=== PATIENT | male | born 1990 | race Caucasian/White ===

== ENCOUNTER 2023-03-31 13:56 | Observation (INO) | payer OTHER ==
--- OUTSIDE RECORDS SUMMARY | 2023-03-31 14:11 | XMS REPORT | Continuity of Care Document ---
:1990 Author Organization [facility] t Address [address] [place] [address] Care Team Providers Name Role Phone PCP, PATIENT DOES NOT HAVE A Primary Care Physician Unavaila Edd Bloom Attending Clinician Unavailable RADIOLOGY Attending Clinician Unavailable CORDELL PELAEZ Attending Clinician Unavailable 2, [facility] Attending Clinician Unavailable Cordell Pelaez MD Attending Clinician Apolinar Attending Clinician Unavailable Gualberto Mendoza Attending Clinician Unavailable Apolinar Admitting Clinician Unavailable Brodie Mendoza Admitting Clinician Unavailable Payers Payer Name Policy Type Policy Effective Date Expiration Date Sour ce Number [employer]CIAL [id number] 2022 OUT OF NETWORK 00:00:00 AETNA 53 [id number] 2022 [facility] 00:00:00 [facility] AETNA - CHOICE [id number] 2022 (POS II) 00:00:00 Problems Condition Condition Condition Status Onset Resolution Last Treating Co mments Source Name Details Category Date Date Treatment Clinician Date Lumbar Lumbar Problem Active 2021-09 Michelle radiculopa Radiculopa -08 Or thope thy thy 00:00: dic 00 Sports Medicin e [id number] Erectile Problem Comm on dysfunctio [facility], - [facility] [id number] Hyperlipid Problem Com mon emia, [facility] unspecifie [facility] d [facility] hyperlipid [facility] [id number] Facet Problem Common arthritis, [facility] degenerati - [facility] ve, L5-S1 St level, [facility] Allergies, Adverse Reactions, Alerts Allergy Allergy Status Severity Reaction(s) Onset Inactive Treating Comm ents Source Name Type Date Date Clinician NO KNOWN Drug Active Univers ALLERGIE Class [facility] Social History Social Habit Start Date Stop Date Quantity Comments Source History of Tobacco [facility] Use [facility] Gender identity [facility] Sexual orientation [facility] Sex Assigned At [birth year] Uni [facility] 00:00:00 00:00:00 [facility] Smoking Status Start Date Stop Date Source Tobacco smoking consumption [facility] Never Smoker [facility] Medications Ordered Filled Start Stop Current Ordering Indication Dosage Frequency Signature Comments Components Source Medication Medication Date Date Medication? Clinician (SIG) Name Name Toradol Toradol No 60mg Common (Ketorolac) (Ketorolac) 7-15 S pirit 00:00: - [facility] Camila Jensen No 40mg Common (Triamcinol (Triamcinol 7-15 S pirit one) one) 00:00: - [facility] Toradol Toradol No 60mg Common (Ketorolac) (Ketorolac) 7-15 S pirit 00:00: - [facility] Camila Jensen No 40mg Common (Triamcinol (Triamcinol 7-15 S pirit one) one) 00:00: - [facility] Toradol Toradol 2022-0 No 60mg Common (Ketorolac) (Ketorolac) 7-15 S pirit 00:00: - [facility] 00 [facility] Kenalog Kenalog 2021-0 No 40mg Common (Triamcinol (Triamcinol 7-15 S pirit one) one) 00:00: - [facility] 00 [facility] Toradol Toradol 2021-0 No 60mg Common (Ketorolac) (Ketorolac) 7-15 S pirit 00:00: - [facility] 00 [facility] Kenalog Kenalog 2021-0 No 40mg Common (Triamcinol (Triamcinol 7-15 S pirit one) one) 00:00: - [facility] 00 [facility] Toradol Toradol 2021-0 No 60mg Common (Ketorolac) (Ketorolac) 7-15 S pirit 00:00: - [facility] 00 [facility] Kenbrent Kenalog 2021-0 No 40mg Common (Triamcinol (Triamcinol 7-15 S pirit one) one) 00:00: - [facility] 00 [facility] Toradol Toradol 2021-0 No 60mg Common (Ketorolac) (Ketorolac) 7-15 S pirit 00:00: - [facility] 00 [facility] Kenbrent Kenalog 2021-0 No 40mg Common (Triamcinol (Triamcinol 7-15 S pirit one) one) 00:00: - [facility] 00 [facility] Toradol Toradol 2021-0 No 60mg Common (Ketorolac) (Ketorolac) 7-15 S pirit 00:00: - [facility]I 00 [facility] Kenalog Kenalog 2021-0 No 40mg Common (Triamcinol (Triamcinol 7-15 S pirit one) one) 00:00: - [facility]I 00 [facility] Toradol Toradol 2021-0 No 60mg Common (Ketorolac) (Ketorolac) 7-15 S pirit 00:00: - [facility]I 00 [facility] Kenalog Kenalog 2021-0 No 40mg Common (Triamcinol (Triamcinol 7-15 S pirit one) one) 00:00: - [facility] 00 [facility] Toradol Toradol 0 No 60mg Common (Ketorolac) (Ketorolac) 7-15 S pirit 00:00: - [facility]I 00 [facility] Kenalog Kenalog 0 No 40mg Common (Triamcinol (Triamcinol 7-15 S pirit one) one) 00:00: - [facility]I 00 [facility] Toradol Toradol 0 No 60mg Common (Ketorolac) (Ketorolac) 7-15 S pirit 00:00: - [facility]I 00 [facility] Kenalog Kenalog 0 No 40mg Common (Triamcinol (Triamcinol 7-15 S pirit one) one) 00:00: - [facility]I 00 [facility] Kenalog Kenalog 2019- No 40mg Common (Triamcinol (Triamcinol 1-05 S pirit one) one) 00:00: - [facility]I 00 [facility] Kenalog Kenalog 2019- No 40mg Common (Triamcinol (Triamcinol 1-05 S pirit one) one) 00:00: - [facility]I 00 [facility] Kenalog Kenalog 2019- No 40mg Common (Triamcinol (Triamcinol 1-05 S pirit one) one) 00:00: - [facility]I 00 [facility] Kenalog Kenalog 2019- No 40mg Common (Triamcinol (Triamcinol 1-05 S pirit one) one) 00:00: - CHI 00 [facility] Kenalog Kenalog 2019- No 40mg Common (Triamcinol (Triamcinol 1-05 S pirit one) one) 00:00: - CHI 00 [facility] Kenalog Kenalog 2019- No 40mg Common (Triamcinol (Triamcinol 1-05 S pirit one) one) 00:00: - CHI 00 [facility] Kenalog Kenalog 2020- No 40mg Common (Triamcinol (Triamcinol 1-05 S pirit one) one) 00:00: - CHI 00 [facility] Kenalog Kenalog 2020- No 40mg Common (Triamcinol (Triamcinol 1-05 S pirit one) one) 00:00: - [facility]I 00 [facility] Camila Jensen 2019-09 No 40mg Common (Triamcinol (Triamcinol 1-05 S pirit one) one) 00:00: - [facility] 00 [facility] Camila Jensen 2019-09 No 40mg Common (Triamcinol (Triamcinol 1-05 S pirit one) one) 00:00: - [facility] 00 [facility] Etodolac Etodolac No BID Etodolac 500 MG 500 MG 500 MG Etodolac Etodolac No BID Etodolac 500 MG 500 MG 500 MG Etodolac Etodolac No 1{table BID Etodolac 500 MG 500 MG t_with_ 500 MG food} Etodolac Etodolac No 1{table BID Etodolac 500 MG 500 MG t_with_ 500 MG food} Etodolac Etodolac No 1{table BID Etodolac 500 MG 500 MG t_with_ 500 MG food} Etodolac Etodolac No 1{table BID Etodolac 500 MG 500 MG t_with_ 500 MG food} Etodolac Etodolac No 1{table BID Etodolac 500 MG 500 MG t_with_ 500 MG food} Etodolac Etodolac No 1{table BID Etodolac 500 MG 500 MG t_with_ 500 MG food} Etodolac Etodolac No BID Etodolac 500 MG 500 MG 500 MG Etodolac Etodolac No BID Etodolac 500 MG 500 MG 500 MG Medrol Medrol No 1dose Medrol Michelle (Ronald) 4 mg (Ronald) 4 mg pk(s) (Ronald) 4 mg Orthope tablets in tablets in tablets in dic a dose pack a dose pack a dose Sports Take 1 dose Take 1 dose pack Take Medicin pk by oral pk by oral 1 dose pk e route. route. by oral route. Immunizations Ordered Filled Immunization Date Status Comments Sourc e Immunization Name Name Boostrix (Tdap) Boostrix (Tdap) 2022-08-12 Completed Comm on 36:00 [facility] Boostrix (Tdap) Boostrix (Tdap) 2022-08-12 Completed Comm on Spirit - 15:36:00 [facility] SARS-COV-2 COVID-19 2021-01-23 Completed Unive rsity of PFIZER VACCINE 00:00:00 [facility] SARS-COV-2 COVID-19 2021-01-03 Completed Unive rsity of PFIZER VACCINE 00:00:00 [facility] Vital Signs Vital Name Observation Time Observation Value Comments Source height 2022-08-21 15:10:00 74 [in_i] [facility] weight 2022-08-21 15:10:00 165 [lb_av] [facility] bmi 2022-08-21 15:10:00 21.18 kg/m2 [facility] height 2022-08-12 15:30:00 74 [in_i] [facility] weight 2022-08-12 15:30:00 166.4 [lb_av] [facility] temperature 2022-08-12 15:30:00 97.9 [degF] [facility] bmi 2022-08-12 15:30:00 21.36 kg/m2 [facility] oximetry 2022-08-12 15:30:00 98 % [facility] respiratory rate 2022-08-12 15:30:00 18 /min Comm on [facility] blood pressure 2022-08-12 15:30:00 118 mm[Hg] [facility] systolic [facility] blood pressure 2022-08-12 15:30:00 63 mm[Hg] [facility] diastolic [facility] Height 2022-07-15 00:00:00 74 [in_i] [facility] BMI (Body Mass 2022-07-15 00:00:00 20.5 kg/m2 [facility] Orthopedic Index) Sports Medicine Body Weight 2022-07-15 00:00:00 160 [lb_av] [facility] height 2022-03-21 16:20:00 74 [in_i] [facility] weight 2022-03-21 16:20:00 156.4 [lb_av] [facility] temperature 2022-03-21 16:20:00 98.9 [degF] [facility] bmi 2022-03-21 16:20:00 20.08 kg/m2 [facility] oximetry 2022-03-21 16:20:00 97 % [facility] respiratory rate 2022-03-21 16:20:00 17 /min Comm on [facility] blood pressure 2022-03-21 16:20:00 119 mm[Hg] [facility] systolic [facility] blood pressure 2022-03-21 16:20:00 72 mm[Hg] [facility] diastolic [facility] Procedures This patient has no known procedures. Plan of Care Planned Activity Planned Date Details Comments Source Instructions [facility]oped [facility] Sports Medicine Encounters Start End Encounter Admission Attending Care Care Encounter Source Date/Time Date/Time Type Type Clinicians Facility Department ID 2023-03-31 Outpatient Mendoza, STLMLC STLMLC [id number] Common 08:56:00 [facility] [address] [facility] 2023-02-23 Outpatient Mendoza, STLMLC STLMLC [id number] Common 13:09:[address] [facility] [address] [facility] 2022-08-19 Outpatient Mendoza, STLMLC STLMLC [id number] Common 15:14:[address] [facility] 2022-07-03 Outpatient Mendoza, STLMLC STLMLC [id number] Common 09:59:[address] [facility] 2022-04-17 Outpatient Mendoza, STLMLC STLMLC [id number] Common 15:01:[address] [facility] 2022-03-25 Outpatient Mendoza, STLMLC STLMLC [id number] Common 13:41:[address] [facility] 2022-03-21 Outpatient Mendoza, STLMLC STLMLC [id number] Common 16:16:[address] [facility] 2022-03-18 Outpatient Mendoza, STLMLC STLMLC [id number] Common 14:11:[address] [facility] 2021-10-04 Outpatient Mendoza, STLMLC STLMLC [id number] Common 10:51:[address] [facility] 2021-10-02 Outpatient Mendoza, STLMLC STLMLC [id number] Common 14:15:[address] [facility] 2021-10-02 Outpatient Mendoza, STLMLC STLMLC [id number] Common 14:14:[address] [facility] 2021-10-02 Outpatient Mendoza, STLMLC STLMLC [id number] Common 14:00:[address] [facility] 2021-10-02 Outpatient Mendoza, STLMLC STLMLC [id number] Common 11:54:[address] [facility] 2023-03-31 2023-03-31 Outpatient R BENIGNO [facility] [id number] Univers 10:00:00 10:26:48 CORDELL drummond [facility] 2023-03-31 2023-03-31 Stencil Sprayer 2, Adc Lab [facility] [id number] [facility] 10:00:00 10:15:00 Visit Cordell Pelaez [id number] bhanu [facility] [id number] Loki CARRANZA [id number] Mt dical [address] 2022-08-21 2022-08-21 OFFICE STLMLC STLC [id number] Co mmon 00:00:00 00:00:00 VISIT EST Spir it PT LEVEL 3 - [facility] 2022-08-12 2022-08-12 PREV VISIT STLMLC STLMLC [id number] Common 00:00:00 00:00:00 EST AGE [facility] 18-39 - [facility] 2022-08-10 2022-08-10 Outpatient FOG_Wimberl AOSM AOSM [id number] Michelle 00:00:00 00:00:00 Anusha [id number] Ortho pe dic Sports Medic[facility] e 2022-07-18 2022-07-18 Outpatient FOG_Wimberl AOSM AOSM [id number] Michelle 00:00:00 00:00:00 Anusha [id number] Ortho pe dic Sports Medicin e 2022-07-15 2022-07-15 Outpatient FOG_Wimberl AOSM AOSM [id number] Michelle 00:00:00 00:00:00 Anusha [id number] Ortho pe dic Sports Medicin e 2022-07-15 2022-07-15 Colten Bernard AOSM [place] - Ortho [id number] Michelle 00:00:00 00:00:00 Mona Coyne MD: 74[address] FOG_Ofc dic [facility], [place] [id number] , Ph. [phone] 2022-06-04 2022-06-04 Outpatient FOG_Wimberl AOSM AOSM [id number] Michelle 00:00:00 00:00:00 Anusha [id number] Ortho pe dic Sports Medicin e 2022-06-02 2022-06-02 (TEL) STLC STLC [id number] Co mmon 00:00:00 00:00:00 [facility] 2022-04-16 2022-04-16 (TEL) STLC STLC [id number] Co mmon 00:00:00 00:00:00 [facility] 2022-04-14 2022-04-14 (TEL) STLC STLMLC [id number] Co mmon 00:00:00 00:00:00 [facility] 2022-04-07 2022-04-07 Outpatient BLANCA MendozaXENIAPM RADI [id number] [facility] 08:43:00 08:43:[address] 2022-03-28 2022-03-28 (TEL) STLC STLC [id number] Co mmon 00:00:00 00:00:00 [facility] 2022-03-24 2022-03-24 (TEL) STLMLC STLMLC [id number] Co mmon 00:00:00 00:00:00 [facility] 2022-03-24 2022-03-24 (TEL) STLMLC STLMLC [id number] Co mmon 00:00:00 00:00:00 [facility] 2022-03-21 2022-03-21 [facility] [id number] Co mmon 00:00:00 00:00:00 VISIT EST Spir it PT LEVEL 3 - [facility] Results Test Description Test Time Test Comments Results Result [facility] e Comments - MRI L-SPINE W/O 2022-04-07 [facility] 1990 Sex: M FAX: Edd Lambert [phone] Camps: PM St: REG Name: LM COTA [facility] : 1990 Age/S: 31/M [address] Unit #: [id number] Loc: [place] [address] Phys: Edd Mendoza DO Acct: [id number] Dis Date: Status: REG CLI PHONE #: [phone] Exam Date: 04/07/2022 09 FAX #: Reason: DORSALGIA, UNSPECIFIED EXAMS: CPT: [id number] MRI L-SPINE W/O CONT [id number] EXAM: - MRI L-SPINE W/O CONT INDICATION: DORSALGIA, UNSPECIFIED Location: T 18. TECHNIQUE: Multiplanar multisequence MR images of the lumbar spine were obtained without intravenous contrast. COMPARISON: None FINDINGS: For purposes of this dictation, it is assumed that there are 5 nonrib-bearing lumbar type vertebrae, and the most caudal fully segmented lumbar vertebra is labeled L5. Alignment: Appears normal. Vertebral body heights: Appear to be maintained. Bone marrow:No diffuse marrow signal abnormality seen. No acute or destructive process seen. Visualized conus: The conus terminates at the level of L1, and appears unremarkable. Cauda equina: Appears unremarkable. Included paraspinal soft tissues and retroperitoneal structures : Appear grossly unremarkable. Evaluation of the individual levels: Moderate disc degenerative changes seen at L5-S1. Mild facet arthropathy also seen at L4-L5 and L5-S1. T12-L1: No spinal canal narrowing or neural foraminal narrowing seen. L1-2: No spinal canal narrowing or neural foraminal narrowing seen. L2-3: No spinal canal narrowing or neural foraminal narrowing seen. L3-4: No spinal canal narrowing or neural foraminal narrowing seen. L4-5: No spinal canal narrowing or neural foraminal narrowing seen. PAGE 1 Signed Report (CONTINUED) FAX: Edd Lambert DO [phone] Camps: PM St: REG Name: LM COTA : 1990 Age/S: 31/M [address] Unit #: [id number] Loc: [place] [address] Phys: Edd Mendoza DO Acct: [id number] Dis Date: Status: REG CLI PHONE #: [phone] Exam Date: 04/07/2022 09 FAX #: Reason: DORSALGIA, UNSPECIFIED EXAMS: CPT: [id number] MRI L-SPINE W/O CONT [id number] (Continued) L5-S1: There is a left lateral protrusion identified with underlying annular tear with slight displacement of the traversing left nerve root. No spinal canal narrowing seen. Mild left neural foraminal narrowing. No right neural foraminal narrowing seen. IMPRESSION: At L5-S1, moderate disc degenerative changes and mild facet arthropathy seen. There is a left lateral protrusion seen with underlying annular tear, and slight distention of the traversing left nerve root. Mild left neural foraminal narrowing. No spinal canal narrowing or right neural foraminal narrowing seen. Please refer to the findings section for additional details. at 0949 Reported and signed by: Manuelito Majano M.D. CC: Edd Mendoza DO Technologist: Shagufta Ly RT(R) Transcribed Date/Time/By: 04/07/2022 (0949) :[email or web address] Orig Print D/T: S: 04/07/2022 (4752) PAGE 2 Signed Report Notes Date/Time Note Provider Source 2023-03-31 10:00:00-00:00 Formatting of this note is d ifferent from the original. [facility] Images from the original note were not included. Venipuncture collection perf ormed by clean technique on the left anticubitus. Total of 2 attempts were made. Slight pressure and a bandage/dressing were applied to the site(s). The patient experienced n o complications. The followi ng specimens were processed according to instructions and sent to [facility] laboratories per lab order on 03/31/2023: LT BLUE SST 2 RED LAV 1 PPT DK GREEN (LiHep) DK GREEN (SodH) CHANDRA DK BLUE (K2) DK BLUE (S) ACD Blood Culture NIPT/NTD Electronically signed by Ela Spann MA a t 03/31/2023 10:26 AM CDT
[2023-03-31 14:41] VITALS: BMI 19.9
[2023-03-31] MEDS ORDERED: BUPIVACAINE 0.5% PF 10 ML VIAL ONE (15:25)
[2023-03-31] MEDS ORDERED: Ringers Lactate 1,000 ML IV ONE (15:41)
[2023-03-31] MEDS ORDERED: propofoL 200 MG/20 ML VIAL IV ONE (15:46)
[2023-03-31] MEDS ORDERED: FENTANYL CITR 100 MCG/2 ML ONE (15:46)
[2023-03-31] MEDS ORDERED: GLYCOPYRROLATE 0.2 MG/ML SYR ONE (15:47)
[2023-03-31] MEDS ORDERED: ONDANSETRON 4 MG/2 ML VIAL ONE (15:47)
[2023-03-31] MEDS ORDERED: MIDAZOLAM HCL 2 MG/2 ML INJ ONE (15:47)
[2023-03-31] MEDS ORDERED: NEOSTIGMINE 1 MG/ML -10 ML VIAL ONE (15:47)
[2023-03-31] MEDS ORDERED: ROCURONIUM 50 MG/5 ML VIAL IV ONE (15:48)
[2023-03-31] MEDS ORDERED: KETOROLAC 30 MG/ML INJ ONE (15:48)
[2023-03-31] MEDS ORDERED: LIDOCAINE 1% MPF 5 ML VIAL ONE (15:49)
[2023-03-31] MEDS ORDERED: dexAMETHasone 4 MG/ML VIAL ONE (15:49)
--- NOTE | 2023-03-31 17:06 | P.HP ---
Date of Service: 03/31/23 PC: This 32-year-old male presented to another facility without surgical capabilities with right lower quadrant abdominal pain for diagnosis and treatment. HPC: Patient was uncomfortable since . Started having some vague abdominal pain. Moved all over his abdomen. Now localized to the right lower quadrant. Not the worst but it seems to be more tender and just one spot in that right lower quadrant. No change in bowel habit. No diarrhea. Says he had a similar episode to this about 6 years ago but resolved spontaneously. PSHx: Negative PMHx: Negative Social Hx: No known allergies Sys R: No cough, wheeze, shortness of breath. No chest pain or palpitations. Denies any urinary complaints O/E: Awake alert vital signs are stable HEENT: Not jaundiced Chest: Air entry equal bilaterally Abd: Tender with guarding in the right lower quadrant, peritoneal signs [place]: Intact Data: CT scan supports clinical diagnosis of acute appendicitis Impression: Acute appendicitis Plan: I will taken the operating room for laparoscopic appendectomy. The risks of this procedure have been discussed. The possibility of bleeding, infection, injury to bowel and surrounding structures were outlined. The possibly of an open and or further surgeries and procedures was described. He understands and wants us to proceed.
[2023-03-31] MEDS ORDERED: CIPROFLOXACIN 400mg IV 400 MG/200 ML BAG IV ONE (17:09)
[2023-03-31] MEDS ORDERED: HYDROCODONE/APAP 7.5/325 MG TAB PO PRN (17:59)
[2023-03-31] MEDS ORDERED: ONDANSETRON 4 MG/2 ML VIAL IV PRN (17:59)
[2023-03-31] MEDS ORDERED: MORPHINE 4 MG/ML SYR IV PRN (18:05)
--- NOTE | 2023-03-31 18:06 | P.OP ---
Preoperative diagnosis: Acute abdomen with appendicitis Postoperative diagnosis: The same Primary procedure: Laparoscopic appendectomy Other procedure(s): Tap block Anesthesia: General Estimated blood loss: Less than 10 cc Operative Technique: The patient brought the operating room and placed supine on the table. After the induction of adequate general endotracheal anesthesia, there the abdomen was prepped with a chlorhexidine solution, he was draped in the usual aseptic manner. The area of the umbilicus was injected with 0.25% Marcaine. A skin incision was then made. Using traction, the Visiport was used to enter the peritoneal cavity and created pneumoperitoneum to approximately 12 mmHg. Under direct vision a 5 mm trocar was on the placed on the right lateral side. We then did a tap block using 0.25% 6 Marcaine on both the right and left sides. Attention was now turned down towards the midline. A skin incision was made. The 5 mm trocar was now placed in the lower midline. The patient was then placed in reverse Trendelenburg and the table tilted to the left. We could visualize the right lower quadrant. It was noticeable there was quite a lot of omentum stuck around the cecum and adherent to the sidewall. This was gently taken down applying traction. The appendix was now identified. It had quite a long and tortuous way from the cecum towards the right lateral sidewall of the true pelvis. Appear to be almost retroperitoneal. The distal portion of the appendix which was done to be acutely inflamed was grasped. This was gently dissected away by taking away the peritoneal attachments. The appendix was freed back towards the ileocecal valve. The mesentery of the appendix was also taken down using controlled electrocautery. The base of the appendix was now gently identified as junction with the cecum. Converting the camera at the midline to the right upper quadrant and change it to a 5 mm the linear stapler was now introduced into the peritoneal cavity, placed across the base of the appendix, and fired. Good closure having been obtained, the appendix having been detached was placed into an Endo Catch. It was through the umbilical trocar site. The abdomen was inspected to ensure adequate hemostasis. The right lower quadrant was irrigated with a saline solution was then aspirated from the peritoneal cavity. The cecum was rolled back into its normal anatomical position. The bowel was returned to the neutral OR position. The Endo Close was now used to approximate the umbilical fascial defect. At this point the pneumoperitoneum was collapsed, the trocars removed, the sutures tied. [place] were then applied to the skin At the end of the procedure the patient was in a stable condition was sent to the recovery room. Needle sponge instrument count were correct. No drains were placed. Complications: None Transferred to: Recovery Room Condition: Good
[2023-03-31] MEDS: Ringers Lactate 1,000 ML IV SCH (20:16)
[2023-04-01] MEDS: Ringers Lactate 1,000 ML IV SCH (05:32)
[2023-04-01 05:54] VITALS: O2SAT 98
[2023-04-01] MEDS ORDERED: ACETAMINOPHEN 500 MG TAB PO ONE (07:35)
[2023-04-01 10:35] VITALS: BP 108/54; TEMP 98.9
--- NOTE | 2023-04-01 14:28 | P.DS ---
Admission Date: 03/31/23 Discharge Date: 04/01/23 Disposition: ROUTINE DISCHARGE Discharge Condition: GOOD Reason for Admission: Acute postoperative abdominal pain Procedures: Laparoscopic appendectomy Brief History of Present Illness: Patient presented to another facility without surgical availability with abdominal pain for diagnosis and treatment. Hospital Course: The patient was diagnosed with acute appendicitis at another facility. After discussion, he was admitted to our facility and brought to the operating room where he underwent a laparoscopic appendectomy. He was admitted postoperatively for observation and pain control. Today he is up ambulating, his pain is under control, he is tolerating a diet and voiding well. He is deemed fit for discharge. Vital Signs/Physical Exam: Temp Pulse Resp BP Pulse Ox 98.9 F 85 20 108/54 L 98 04/01/23 08:00 04/01/23 08:00 04/01/23 08:00 04/01/23 08:00 04/01/23 08:00 Home Medications: NK [No Home Meds] 03/31/23 Physician Discharge Instructions: DC IV, DC home. He may shower. Diet as tolerated. Advil/Motrin for pain. See next week Thursday or Thursday, call for an appointment. Any questions or problems, go to the emergency room, or contact me. Ambulated home, continue with incentive spirometer. Milk of magnesia as needed. Followup: Jarod Acosta MD [ACTIVE - CAN ADMIT] -
--- NOTE | 2023-04-01 14:33 | P.PN ---
Date of Service: 04/01/23 S: Patient feels well, says her pain is much relieved. Has pain along her incision. Relieved by her abdominal binder. O: Patient looks very well. Vital signs are stable, sitting up in bed. Chest movement equal bilaterally. Dressings are intact, abdominal binder in place. Minimal out through the SARAI drain which is just clear serous fluid at this point. White cell count is elevated, most likely reactive. On antibiotics. IV site intact. A: Patient looks very well, in good spirits. Will transfer out to the floor. P: Patient doing well status post exploratory laparotomy with appendectomy for ruptured appendix. She is doing very well today, will transfer to the floor. I will DC her Mina catheter, continue with incentive spirometry and SCDs. Will check drain amount tomorrow, but anticipate discharge early. I have emphasized with her the need to increase her p.o. intake over the next few days. Particularly with protein intake. She understands, and says she will try. I will visit with her tomorrow, and emphasized this more.
== END 2023-04-01 15:50 | disposition home or self-care (01) ==
LOC: INTOOBSV 14:05 → 2ND 14:05
PROVIDERS: ADMIT Surgery; ATTEND Surgery
PROC: 0DTJ4ZZ Resection of Appendix, Percutaneous Endoscopic Approach (ICD-10-PCS; principal; 2023-03-31 15:00)
DX: K35.80 Unspecified acute appendicitis (principal); R10.0 Acute abdomen; G89.18 Other acute postprocedural pain
CPT/HCPCS: 88304; 94010; 44970; J2704; J1100; J2710; J2001; J2250; J3010; J2405 ×2; J0744; J7120 ×3